=== PATIENT | female | born 1940 | race Caucasian/White ===

== ENCOUNTER 2020-10-18 21:50 | Emergency (ER) | payer MEDICARE, OTHER ==
[~2020-10-18] VITALS: Ht 162.6 cm; Wt 106.6 kg
[~2020-10-18 21:50] MED LIST: ACET-687 PO; APIX5TAB PO; CALC-101 PO; CYAN100014 SL; FURO-81 PO; LEVO100T PO; LEVO100T5 PO; METO-236 PO; OMEG500C PO; PANT40TA3 PO; POTA20TA37 PO; RIVA10TA PO; SPIR25TA PO; SPIR25TA5 PO
[2020-10-18 22:08] VITALS: BP 176/66
[2020-10-18 22:14] VITALS: BP 176/66
--- NOTE | 2020-10-18 22:25 | ER.PDOC ---
General Chief Complaint: Extremities Stated Complaint: ARM INJURY/FALL Time seen by MD: 22:04 Source: patient, family Exam Limitations: no limitations History of Present Illness Occurred: this evening Where: home Severity: moderate Injuries/Pain Location: upper extremity (left mid humerus pain), other (stumbled walking to cars and was trying to protect her knees that are bad and fell into the front of a pickup and took the weight of the fall with her lateral humerus. did not hit head, slid to the ground without significant additional injury. is on a blood thinner. ) Modifying Factors: improves with immobilization, improves with jarring, improves with movement, improves with rest Associated Symptoms: denies symptoms Allergies: Uncoded Allergies: SULFA DRUGS (Allergy, Mild, Rash, 04/12/15) MEDS Reported Medications Spironolactone 25MG (ALDACTONE 25MG) 25 Mg Tablet, 1 TAB PO DAILY for DIURETIC, #90 TAB 1 Refill 08/21/15 Pantoprazole Sodium (PROTONIX) 40 Mg Tablet.dr, 1 TAB PO DAILY for STOMACH, #30 TAB 5 Refills 08/21/15 Levothyroxine Sodium (SYNTHROID) 100 Mcg Tablet, 1 TAB PO DAILY for HYPOTHYROIDISM, #30 TAB 5 Refills 08/21/15 Metoprolol Succinate (METOPROLOL SUCCINATE) 25 Mg Tab.er.24h, 1 TAB PO BID for HEART RATE/BLOOD PRESSURE, #60 TAB 5 Refills 08/21/15 Potassium Bicarbonate/Cit Ac (EFFER-K 20 MEQ TABLET EFF) 20 Meq Tablet.eff, 40 MEQ PO DAILY, #30 08/21/15 Furosemide (LASIX) 20 Mg Tablet, 1 TAB PO DAILY, #30 TAB 5 Refills 08/21/15 Apixaban (Eliquis) 5 Mg Tablet, 5 MG PO BID for BLOOD THINNER, #30 TABLET 08/21/15 Acetaminophen With Codeine (TYLENOL WITH CODEINE #4 TABLET) 1 Each Tablet, 1-2 TAB PO Q6HR PRN for PAIN, #30 TAB 2 Refills 04/19/15 Cyanocobalamin (Vitamin B-12) (VITAMIN B-12) 1,000 Mcg Tab.subl, 1000 MCG SL DAILY 04/12/15 Calcium Carbonate/Vitamin D3 (CALCIUM + VITAMIN D TABLET) 1 Each Tablet, 1 EACH PO DAILY, TABLET 04/12/15 [place]-3 Fatty Acids (FISH OIL) 500 Mg Capsule.dr 500 MG PO DAILY 04/12/15 Spironolactone (SPIRONOLACTONE) 25 Mg Tablet, 1 TAB PO DAILY, #90 TAB 3 Refills 04/12/15 Levothyroxine Sodium (LEVOTHYROXINE SODIUM) 100 Mcg Tablet, 1 TAB PO ACB, TAB 04/12/15 Past Medical History Medical History: arrhythmia, cardiac problems, hypertension, other Surgical History: cholecystectomy, hysterectomy, knee, tonsillectomy Social History Alcohol Use: none Drug Use: none Review of Systems Musculoskeletal: see HPI, muscle pain, other (L arm pain) All Other Systems: Reviewed and Negative Physical Exam General Appearance: No Apparent Distress, Obese Head: No Evidence of Injury Eyes: bilateral eye normal inspection, bilateral eye PERRL, bilateral eye EOMI Ears, Nose, Mouth, Throat: Hearing Grossly Normal, No Evidence of ENT Injury, No Dental Injury Cardiovascular/Respiratory: Regular Rate, Rhythm, No M/R/G, Normal Peripheral Pulses, No JVD, Normal Breath Sounds, No Respiratory Distress Gastrointestinal: Normal Bowel Sounds, No Organomegaly, No Pulsatile Mass, Non Tender, Soft Extremities: Other (L humerus with pain with movement of elbow and shoulder. ttp over mid lateral upper arm.) Neurologic/Psychiatric: No Motor/Sensory Deficits, Alert, Normal Mood/Affect, Oriented x 3 Skin: Normal Color, Warm/Dry Results/Orders Results/Orders Orders - MCKENNA ROSS MD Xr Humerus Lt (10/18/20 22:18) Vital Signs Date Time Temp Pulse Resp B/P (MAP) Pulse Ox O2 Delivery O2 Flow Rate FiO2 10/18/20 22:14 97.9 75 18 176/66 (102) 98 Room Air 10/18/20 22:08 97.9 75 18 176/66 (102) 98 Room Air 10/18/20 22:08 97.9 75 18 98 10/18/20 22:08 97.9 75 18 Progress Progress discussed negative xray with pt and daughter. let them know to use Tylenol for the pain and can use a sling for comfort for short terms but not all day. f/u with pcp ER DEPART Departure Time of Disposition: 23:00 Disposition: 01 HOME, SELF-CARE Impression: Primary Impression: Contusion of left upper arm, initial encounter Condition: Stable Referrals: JAYE OSMAN MD (PCP) PRIMARY CARE PROVIDER Duration or Time Spent with Pa: 15 MCKENNA ROSS MD Oct 18, 2020 22:25
--- NOTE | 2020-10-18 22:45 | DIREP ---
PROCEDURE:XRAY HUMERUS MIN 2 VWS-LT COMPARISON:None. INDICATIONS:fall/pain FINDINGS: BONES:No fractures or other acute bony abnormalities. JOINTS:Normal. SOFT TISSUES:Normal. OTHER:No additional findings. CONCLUSION:No acute left humerus abnormalities. Dictated by: Bull Butts M.D. on 10/18/2020 at 10:43 PM
[2020-10-18 23:25] VITALS: BP 181/61
== END 2020-10-18 23:26 | disposition home or self-care (01) ==
LOC: ER 21:50
DX: S40.022A Contusion of left upper arm, initial encounter (principal); I10 Essential (primary) hypertension; Z79.01 Long term (current) use of anticoagulants; Z79.899 Other long term (current) drug therapy; Z88.2 Allergy status to sulfonamides; Z90.49 Acquired absence of other specified parts of digestive tract; Z90.710 Acquired absence of both cervix and uterus; W01.0XXA Fall on same level from slipping, tripping and stumbling without subsequent striking against object, initial encounter; Y93.01 Activity, walking, marching and hiking; Y92.89 Other specified places as the place of occurrence of the external cause; Y99.8 Other external cause status
CPT/HCPCS: 99284; 73060-LT

== ENCOUNTER → 2020-10-30 | Outpatient (CLI) | payer MEDICARE, OTHER ==
--- NOTE | 2020-10-30 12:22 | DIREP ---
PROCEDURE:MR SHOULDER WITHOUT CONTRAST [Left] TECHNIQUE:Multi-planar MR images of the left shoulder were obtained without contrast. COMPARISON:[facility], CR, XRAY HUMERUS MIN 2 VWS-LT, 10/18/2020, 10:24 PM. INDICATIONS:S46.912A STRAIN OF MUSCLE FINDINGS: ROTATOR CUFF:Thickened supraspinatus and infra spinatus tendon may reflect combination of tendinosis and or contusion. Partial-thickness moderate grade tear involving the posterior supraspinatus tendon insertion measuring 7 x 7 mm spanning 50-75% tendon depth. Partial-thickness subscapularis tendon tear measuring 6 x 6 mm transverse/craniocaudal dimension spanning 50% tendon depth or less. Teres minor tendon intact. BICEPS TENDON:Moderate tendinosis of the biceps tendon at the groove entrance. MUSCLES:Muscles proportionate without atrophy. LIGAMENTS:Superior and middle glenohumeral ligaments not well assessed without arthrographic contrast. Inferior glenohumeral ligament appears intact. LABRUM:Anteroinferior labrum appears torn and detached from the glenoid. Posterior labrum fraying. AC JOINT:AC joint arthrosis with mild undersurface spurring. GLENOHUMERAL JT:Glenohumeral chondral loss. ACROMION:Type 2 acromion. No os acromiale. Acromiohumeral interval 8-9 mm. BONES:Marrow edema present within the humeral metaphysis as well as greater tuberosity with fracture extending to the greater tuberosity suggested on image 9 coronal T2 as well as possible incomplete transverse humeral neck fracture (image 12 series 801). Mixed signal intensity fluid within the marrow may reflect sequela of hemorrhagic products OTHER:Negative. CONCLUSION: 1. Fractures of the proximal humerus extending into the greater tuberosity with incomplete humeral neck fracture. 2. Partial-thickness supraspinatus and subscapularis tendon tears. 3. Tendinosis versus contusions of supraspinatus and infraspinatus tendons. 4. Biceps tendinosis. 5. Glenohumeral degenerative changes. Dictated by: Robert Paulson M.D. on 10/30/2020 at 12:08 PM
== END | disposition home or self-care (01) ==
LOC: RAD 10:00
PROVIDERS: ATTEND Orthopaedic Surgery
DX: S42.252A Displaced fracture of greater tuberosity of left humerus, initial encounter for closed fracture (principal); M75.112 Incomplete rotator cuff tear or rupture of left shoulder, not specified as traumatic; M19.012 Primary osteoarthritis, left shoulder; M77.8 Other enthesopathies, not elsewhere classified; X58.XXXA Exposure to other specified factors, initial encounter; Y93.89 Activity, other specified; Y92.89 Other specified places as the place of occurrence of the external cause; Y99.8 Other external cause status
CPT/HCPCS: 73221